=== PATIENT | male | born 1965 | race Caucasian/White ===

== ENCOUNTER 2016-08-21 08:49 | Day surgery (SDC) | payer BC ==
[~2016-08-21] VITALS: Ht 170.2 cm; Wt 97.1 kg
[~2016-08-21 08:49] MED LIST: IBUP-1542 PO
[2016-08-21] MEDS ORDERED: GLIPIZIDE (09:26)
[2016-08-21] MEDS ORDERED: TRAMADOL (09:26)
[2016-08-21 09:28] VITALS: Ht 170.2 cm; Wt 97.1 kg
[2016-08-21 10:03] VITALS: BP 125/83; PULSE 92; RESP 18
[2016-08-21] MEDS ORDERED: PROPOFOL 20 ML ONE (10:58)
[2016-08-21] MEDS ORDERED: FENTAnyl 50 MCG/ML VIAL ONE (10:59)
[2016-08-21] MEDS ORDERED: MIDAZOLAM 1 MG/ML 2 ML INJ ONE (10:59)
[2016-08-21 11:51] VITALS: BP 142/86; PULSE 85; RESP 16
--- NOTE | 2016-08-22 07:07 | GILP ---
DATE OF PROCEDURE: NAME OF PROCEDURE: Colonoscopy. SURGEON: Sandy Potts MD PREOPERATIVE DIAGNOSIS: Positive occult blood in stool. POSTOPERATIVE DIAGNOSES: 1. Colonoscopy all the way to the cecum. 2. Internal hemorrhoids. 3. No colon neoplasm was identified. INDICATION FOR THE PROCEDURE: Mr. Pete Cotton is a 50-year-old male patient who was noted to have positive occult blood in stool. The patient was scheduled for colonoscopy for further evaluation. The procedure and possible complications are well explained to the patient, he understood and consen jade to the procedure. DESCRIPTION OF PROCEDURE: Under the influence of anesthesia, the colonoscope was carefully introduc ed in the rectum and under direct vision, it was advanced all the way to the cecum. FINDINGS: The patient had internal hemorrhoids. No colon neoplasm was identified. He tolerated the procedure very well and there was no complication from the procedure. At the end o f the procedure, he was awake with stable vital signs and he was discharged home to the care of his family. IMPRESSION: 1. Colonoscopy all the way to the cecum. 2. Internal hemorrhoids. 3. No colon neoplasm was identified. PLAN: Next screening colonoscopy in 10 years. Dictated By: SANDY RUIZ/KODI Conf#: [id number] DID#: [id number]
== END 2016-08-21 11:59 | disposition home or self-care (01) ==
LOC: GIL 08:49
PROVIDERS: ATTEND Internal Medicine Gastroenterology
DX: R19.5 Other fecal abnormalities (principal); K64.8 Other hemorrhoids; E11.9 Type 2 diabetes mellitus without complications; I10 Essential (primary) hypertension
CPT/HCPCS: 45378; 82962; J2250; J3010; Z7610

== ENCOUNTER 2016-11-20 10:37 | Emergency (ER) | payer BC ==
[~2016-11-20] VITALS: Ht 165.1 cm; Wt 95.0 kg
[~2016-11-20 10:37] MED LIST changes: +GLIPIZIDE; -IBUP-1542 PO; +TRAMADOL
[2016-11-20 10:41] VITALS: Ht 165.1 cm; Wt 95.0 kg
[2016-11-20 13:44] LABS: URINE BLOOD (Dip) POC Negative (NEGATIVE)
[2016-11-20] MEDS ORDERED: CLOT30CR24 TOP (13:48)
--- NOTE | 2016-11-20 13:59 | ERD ---
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 The patient had this 1 time in the past and it resolved on its own. Patient is sexually active but is monogamous with his only for many years. The patient denies dysuria, back pain, fevers, chills , or other symptoms at this time. Home blood sugar levels have been in the 130s. No other symptoms to report at this time. ROS All systems reviewed and are negative except as per history of present illness. Medications Home Meds Active Scripts Clotrimazole* (Clotrimazole* AF) 1% - 30 Gm Cream.gm., 1 APPLIC TOP BID for 7 Days, #1 TUB Prov:BROOKLYNN SONI PA-C 11/20/16 Reported Medications [Tramadol] No Conflict Check 08/21/16 [Glipizide] No Conflict Check 08/21/16 Allergies Allergies: Coded Allergies: No Known Allergy (Unverified , 02/01/15) PMhx/Soc History of Surgery: Yes (RIGHT SHOULDER, UNDESCENDED TESTICLE SX) Anesthesia Reaction: No Hx Neurological Disorder: No Hx Respiratory Disorders: No Hx Cardiac Disorders: Yes (HTN) Hx Psychiatric Problems: No Hx Miscellaneous Medical Probl: No Hx Alcohol Use: No Hx Substance Use: No Hx Tobacco Use: No FmHx Noncontributory for chief complaint Physical Exam Vitals Vital Signs Date Time Temp Pulse Resp B/P Pulse Ox O2 Delivery O2 Flow Rate FiO2 11/20/16 10:41 98.1 83 20 140/93 97 Physical Exam Const: The patient is resting comfortably in no acute distress. Head: Atraumatic Eyes: Normal Conjunctiva ENT: Normal External Ears, Nose and Mouth. Neck: Full range of motion..~ No meningismus. Resp: Clear to auscultation bilaterally Cardio: Regular rate and rhythm, no murmurs Exam: The glans penis is erythematous with some maceration present. There is no urethral discharge. Scrotum: Non-erythematous, nonedematous, no tenderness to palpation. 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 Hernia: None Testes/Epid: Nontender with normal lie on the left side. Right testicle is absent secondary to orchiectomy. Cremaster: Reflex intact Lymph: No inguinal lymphadenopathy Discharge: None Abd: Soft, non tender, non distended. Normal bowel sounds Skin: No petechiae or rashes Back: No midline or flank tenderness Ext: No cyanosis, or edema Neur: Awake and alert Psych: Normal Mood and Affect Results 24 hrs Laboratory Tests Test 11/20/16 13:45 Bedside Urine pH (LAB) 5.5 Bedside Urine Protein (LAB) Trace Bedside Urine Glucose (UA) 0.50% Bedside Urine Ketones (LAB) Negative Bedside Urine Blood Negative Bedside Urine Nitrite (LAB) Negative Bedside Urine Leukocyte Esterase (L Negative Procedures/MDM 51-year-old male presents to the emergency department secondary to complaints of pruritus of the glans penis. On physical examination the patient's vitals are within normal limits with the exception of slightly elevated blood pressure 140/93. Patient's blood pressure was elevated (>120/80) but appears stable without evidence of hypertension emergency or urgency. The patient was counseled about the risks of hypertension and urged to pursue outpatient monitoring and therapy within a week with their primary care physician. Urine dip was negative for signs of urinary tract infection. Examination of the glans penis reveals some erythema with maceration present which is concerning for possible candidal balanitis. The patient will be treated as an outpatient with a prescription for clotrimazole. The patient agrees to the discharge plan and diagnosis. Strict ER return precautions were discussed. The patient is to follow-up with his primary care physician within the next 1-3 days. Departure Diagnosis: Primary Impression: Balanitis Condition: Fair Patient Instructions: Balanitis Additional Instructions: Follow up with your PCP within the next 1-3 days for a more thorough evaluation and a possible referral to a specialist. Return the the emergency department immediately if symptoms worsen or change. If you have any questions regarding medications, ask your pharmacist or us before you leave. If any adverse reactions, occur while taking your medications, discontinue the treatment and return to the emergency department immediately. If any new or worsening symptoms, uncontrolled fevers, or other unexplained symptoms occur, return to the emergency department immediately. Take your medications as directed, and complete the entire course of treatment. BROOKLYNN SONI PA-C November 20, 2016 13:59
== END 2016-11-20 14:04 | disposition home or self-care (01) ==
LOC: FTE 10:37
DX: N48.1 Balanitis (principal); I10 Essential (primary) hypertension; Z85.47 Personal history of malignant neoplasm of testis
CPT/HCPCS: 81003; Z7502; 99283

== ENCOUNTER 2017-08-17 12:48 | Emergency (ER) | END 2017-08-17 17:00 | disposition home or self-care (01) ==